=== PATIENT | female | born 1990 | race African-American/Black ===

== ENCOUNTER 2016-07-31 13:50 | Emergency (ER) | payer OTHER ==
[~2016-07-31] VITALS: Ht 160 cm; Wt 49.0 kg
[2016-07-31 14:28] VITALS: BP 103/69
--- NOTE | 2016-07-31 14:31 | NUR ---
TO LOBBY FOR AVAIL. BED
--- NOTE | 2016-07-31 21:38 | NUR ---
TO ER BED 4
--- NOTE | 2016-07-31 21:58 | NUR ---
MD CAME AT BEDSIDE TO EVALUATE PT.
[2016-07-31] MEDS ORDERED: IBUPROFEN 800 MG TAB PO ONE (22:15)
--- NOTE | 2016-07-31 22:38 | NUR ---
MOTRIN 800 MG PO GIVEN.
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
[2016-07-31 23:04] VITALS: BP 107/66
--- NOTE | 2016-07-31 23:05 | NUR ---
Patient discharged with v/s stable. Written and verbal after care instructions given and explained. Patient alert, oriented and verbalized understanding of instructions. Ambulatory with steady gait. All questions addressed prior to discharge. ID band removed. Patient advised to follow up with PMD. Rx of BACTRIM,MOTRIN,TYLENOL WITH CODEINE given. Patient educated on indication of medication including possible reaction and side effects. Opportunity to ask questions provided and answered.ENCOURAGED FLUID INTAKE AND PT AGREED WITH IT.INSTRUCTED ALSO TO COME BACK IN 2 DAYS.
== END 2016-07-31 23:04 | disposition home or self-care (01) ==
LOC: MED 13:50
DX: L03.317 Cellulitis of buttock (principal); J02.9 Acute pharyngitis, unspecified
CPT/HCPCS: 81002; 81025; 99283

== ENCOUNTER 2017-03-04 18:55 | Inpatient (IN) | payer MEDICAID, OTHER ==
[~2017-03-04] VITALS: Ht 162.6 cm; Wt 49.0 kg
[2017-03-04 18:57] VITALS: BP 125/93
--- NOTE | 2017-03-04 19:04 | NUR ---
Patient taken to bed 01 via wheelchair.
--- NOTE | 2017-03-04 19:15 | NUR ---
Patient being evaluated by Dr. Vazquez at bedside.
--- NOTE | 2017-03-04 19:15 | NUR ---
26/F presents to ED with complaints of severe lower abdominal cramping x1 week. Pt states she had an elective 8 days ago at [facility]. Pt reports having light vaginal bleeding after the procedure but on Thanksgiving the pain worsened and vaginal bleeding increased. Pt is crying, moaning, very restless in bed with severe pain. 01/16 pt describes as "contractions." AOX4, clear speech. Pt in a gown, VSS. Denies medical hx NKDA
[2017-03-04] MEDS ORDERED: HYDROmorphone 1 MG/ML AMP IVP ONE ×2 (19:20→19:35)
[2017-03-04] MEDS ORDERED: NACL 0.9% 1,000 ML IV ONE ×2 (19:20→19:35)
[2017-03-04] MEDS ORDERED: ONDANSETRON 4 MG/2 ML VIAL IVP ONE (19:20)
--- NOTE | 2017-03-04 19:27 | NUR ---
Ultrasound at bedside.
[2017-03-04 19:30] LABS: BASOPHILS # (AUTO) 0.1 K/uL (0.00-0.22); BASOPHILS % (AUTO) 0.9 % (0.0-2.0); EOSINOPHILS # (AUTO) 0.2 K/uL (0-0.4); HEMATOCRIT 36.9 % (36-48); HEMOGLOBIN 12.3 g/dL (12.0-16.0); LYMPHOCYTES # (AUTO) 2.7 K/uL (2.5-16.5); LYMPHOCYTES % (AUTO) 34.4 % (20.5-51.1); MEAN CORPUSCULAR HEMOGLOBIN 31 pg (27-31); MEAN CORPUSCULAR HGB CONC 33 g/dL (33-37); MEAN CORPUSCULAR VOLUME 93 fL (80-94); MONOCYTES # (AUTO) 0.4 K/uL (0.8-1.0); MONOCYTES % (AUTO) 5.6 % (1.7-9.3); NEUTROPHILS # (AUTO) 4.5 K/uL (1.8-7.7); NEUTROPHILS % (AUTO) 57.1 % (42.2-75.2); PLATELET COUNT (AUTO) 431 K/uL (140-450); RED BLOOD CELL COUNT(AUTO) 3.95 MIL/uL (4.20-5.40); RED CELL DISTRIBUTION WIDTH 11.9 % (11.6-13.7); WHITE BLOOD COUNT (AUTO) 7.9 K/uL (4.8-10.8)
[2017-03-04] MEDS ORDERED: ceFAZolin 1,000 MG VIAL IM ONE (19:35)
[2017-03-04 19:38] LABS: ANION GAP 12.5 (8-16); CARBON DIOXIDE 26.4 mmol/L (21-32); CREATININE 0.9 mg/dL (0.6-1.3); POTASSIUM 3.9 mmol/L (3.5-5.1)
[2017-03-04 19:44] LABS: ALBUMIN 3.8 g/dL (3.4-5.0); TOTAL BILIRUBIN 0.5 mg/dL (0.0-1.0)
--- NOTE | 2017-03-04 19:54 | NUR ---
Pt is resting, relaxing comfortably at this time. 5/10 pain. No longer restless, or crying. Pain improved. Comfort needs met.
[2017-03-04] MEDS ORDERED: ACETAMINOPHEN 325 MG TAB PO PRN (20:10)
[2017-03-04] MEDS ORDERED: HYDROcodone/APAP 7.5/325 MG 1 TAB PO PRN (20:10)
[2017-03-04] MEDS ORDERED: ONDANSETRON 4 MG/2 ML VIAL IVP PRN (20:10)
--- NOTE | 2017-03-04 20:20 | NUR ---
Pelvic exam performed by Dr. Vazquez with myself at bedside for entire examination. Patient tolerated procedure well. Patient assisted to position of comfort after examination.
--- NOTE | 2017-03-04 20:34 | NUR ---
Pt up to restroom to provide UA. Ambulatory with steady gait.
[2017-03-04 20:39] LABS: PROTHROMBIN TIME 11.2 secs (10.8-13.4)
--- NOTE | 2017-03-04 20:40 | NUR ---
Dr. Mora Resident at bedside evaluating patient.
--- NOTE | 2017-03-04 20:45 | NUR ---
X-Ray at bedside.
[2017-03-04 20:48] LABS: APPEARANCE,URINE CLOUDY (CLEAR); BILIRUBIN,URINE NEGATIVE (NEGATIVE); BLOOD, URINE 3+ (NEGATIVE); COLOR,URINE RED (YELLOW); LEUKOCYTE ESTERASE ,URINE TRACE (NEGATIVE); NITRITE, URINE NEGATIVE (NEGATIVE); PH,URINE 8.5 (5.0-9.0); UGLUCOSE NEGATIVE (NEGATIVE)
[2017-03-04 20:51] LABS: RBC,URINE TOO NUMEROUS TO COUN /HPF (0-5); WBC,URINE 0-5 (RARE) /HPF (0-5)
[2017-03-04 20:52] LABS: CHOL/HDL RATIO 2.6 (1-4.5); FREE T4 (FREE THYROXINE) 1.05 ng/dL (0.76-1.46); PHOSPHORUS 3.2 mg/dL (2.5-4.9); THYROID STIMULATING HORMONE 0.87 uIU/mL (0.34-3.74)
[2017-03-04 20:57] LABS: BARBITURATE, URINE NEG. ng/ml (NEG <=200); BENZODIAZEPINE, URINE NEG. ng/mL (NEG <=200); CANNABINOID, URINE POS. ng/mL (NEG <=50); COCAINE, URINE NEG. ng/mL (NEG <=300); OPIATE, URINE NEG. ng/mL (NEG <=2000); PHENCYCLIDINE SCREEN,URINE NEG. ng/mL (NEG <=25)
[2017-03-04] MEDS: DOCUSATE SODIUM 100 MG GELCAP PO SCH (21:00)
--- NOTE | 2017-03-04 21:11 | NUR ---
Patient will be admitted to care of Dr. Escobar. Admited to TELE. Will go to room 122-A. Belongings list completed. Report to Nicole MELGOZA.
--- NOTE | 2017-03-04 21:15 | NUR ---
PT NOT IN ROOM FOR EKG.
--- NOTE | 2017-03-04 21:20 | NUR ---
Pt transferred to Tele 122-A via gurpomona on cardiac monitoring.
[2017-03-04] MEDS ORDERED: HYDROmorphone 1 MG/ML AMP IVP PRN (21:25)
--- NOTE | 2017-03-04 21:30 | NUR ---
RECEIVED PT FROM ER VIA MARTINRMAGDA PT IS AAOX4 AMBULATORY IV ON LEFT AC INFUSING WELL ON LAWN SERVICE MANAGER SR SCAN ON PAD FROM VAGINAL BLEEDING PT IS ORIENTED TO THE FLOOR CALL LIGHT WITHIN REACH
[2017-03-04] MEDS: NACL 0.9% 1,000 ML IV SCH (21:48)
[2017-03-04] MEDS: DOXYCYCLINE 100 MG in DEXTROSE 5% 100 ML IV SCH (21:58)
[2017-03-04] MEDS ORDERED: DOXYCYCLINE 100 MG VIAL IV ONE (22:01)
[2017-03-05] VITALS (9 sets, daily range): BP systolic 99–115; BP diastolic 58–73
--- NOTE | 2017-03-05 | NUR ---
PT HAS BEEN MONITORING CLOSE N SCAN VAGINAL BLEEDING IV ON LEFT AC INFUSING WELL NOT FEVER ON TELEMETRY SR
[2017-03-05] MEDS: cefOXitin 2,000 MG in DEXTROSE 5% 100 ML IV SCH ×3 (00:31→12:34)
--- NOTE | 2017-03-05 04:00 | NUR ---
SPONGE BATH GIVEN LINEN CHANGED NOT DISTRESS NOTED , ON TELEMETRY SR
--- NOTE | 2017-03-05 06:44 | NUR ---
PT VERBALIZED TO HAVE SCAN BLOOD VAGINAL BLEEDING NOT FEVER NOT PAIN AT THIS TIME REMAIN RESTING ON BED
[2017-03-05 06:47] LABS: BASOPHILS # (AUTO) 0.2 K/uL (0.00-0.22); BASOPHILS % (AUTO) 2.1 % (0.0-2.0); EOSINOPHILS # (AUTO) 0.2 K/uL (0-0.4); EOSINOPHILS % (AUTO) 2.7 % (0.0-4.0); HEMATOCRIT 29.7 % (36-48); HEMOGLOBIN 9.8 g/dL (12.0-16.0); LYMPHOCYTES % (AUTO) 26.4 % (20.5-51.1); MEAN CORPUSCULAR HEMOGLOBIN 32 pg (27-31); MEAN CORPUSCULAR HGB CONC 33 g/dL (33-37); MEAN CORPUSCULAR VOLUME 95 fL (80-94); MONOCYTES # (AUTO) 0.9 K/uL (0.8-1.0); MONOCYTES % (AUTO) 11.4 % (1.7-9.3); NEUTROPHILS # (AUTO) 4.3 K/uL (1.8-7.7); NEUTROPHILS % (AUTO) 57.4 % (42.2-75.2); PLATELET COUNT (AUTO) 339 K/uL (140-450); RED BLOOD CELL COUNT(AUTO) 3.13 MIL/uL (4.20-5.40); RED CELL DISTRIBUTION WIDTH 11.9 % (11.6-13.7); WHITE BLOOD COUNT (AUTO) 7.6 K/uL (4.8-10.8)
--- NOTE | 2017-03-05 07:01 | NUR ---
DR Dina SERRANO IS HERE AND SEE THE PT
--- NOTE | 2017-03-05 07:10 | NUR ---
PT SIGN THE CONSENT FOR DILATATION AND CURETTAGE
--- NOTE | 2017-03-05 07:20 | NUR ---
PT TAKEN TO OR VIA TREMAINE
[2017-03-05 07:28] LABS: ANION GAP 9.7 (8-16); CARBON DIOXIDE 25.4 mmol/L (21-32); CREATININE 0.8 mg/dL (0.6-1.3); MAGNESIUM 1.8 mg/dL (1.8-2.4); PHOSPHORUS 3.2 mg/dL (2.5-4.9); POTASSIUM 4.1 mmol/L (3.5-5.1)
[2017-03-05] MEDS ORDERED: KETOROLAC 30 MG/ML VIAL IVP ONE (07:53)
[2017-03-05] MEDS ORDERED: PROPOFOL 200 MG/20 ML VIAL IV ONE (07:53)
[2017-03-05] MEDS ORDERED: ONDANSETRON 4 MG/2 ML VIAL IVP ONE (07:53)
[2017-03-05] MEDS ORDERED: SEVOFLURANE 250 ML BTL INH ONE (07:53)
[2017-03-05] MEDS ORDERED: DEXAMETHASONE 4 MG/ML VIAL IVP ONE (07:53)
[2017-03-05] MEDS ORDERED: fentaNYL 0.05 MG/ML VIAL ONE (08:04)
[2017-03-05] MEDS ORDERED: ONDANSETRON 4 MG/2 ML VIAL IVP PRN (08:10)
[2017-03-05] MEDS ORDERED: ACETAMINOPHEN/CODEINE 300/30MG 1 TAB PO PRN (08:10)
[2017-03-05] MEDS ORDERED: IBUPROFEN 800 MG TAB PO PRN (08:10)
[2017-03-05] MEDS ORDERED: MORPHINE SULFATE 4 MG/ML SYR IM/IVP PRN (08:10)
[2017-03-05] MEDS ORDERED: METHYLERGONOVINE 0.2 MG TAB PO SCH ×3 (08:15→09:06)
[2017-03-05] MEDS ORDERED: LACTOBACILLUS RHAMNOSUS GG 1 EACH CAP PO SCH (09:00)
[2017-03-05] MEDS: DOCUSATE SODIUM 100 MG GELCAP PO SCH (09:45)
[2017-03-05] MEDS: NACL 0.9% 1,000 ML IV SCH (09:46)
[2017-03-05] MEDS: DOXYCYCLINE 100 MG in DEXTROSE 5% 100 ML IV SCH (09:47)
--- NOTE | 2017-03-05 09:50 | NUR ---
ADMINISTERED MORNING MEDS. PT TOLERATED WELL. C/O OF HUANG. ADMINISTERED TYLENOL. HAD CLEAR LIQ DIET. TOLERATED WELL. WILL CONTINUE TO MONITOR PT.
--- NOTE | 2017-03-05 10:05 | NUR ---
PATIENT HAS BEEN SCREENED AND CATEGORIZED LOW NUTRITION RISK. PATIENT WILL BE SEEN WITHIN 7 DAYS OF ADMISSION. 03/11/[address]
--- NOTE | 2017-03-05 11:49 | NUR ---
PT RESTING COMFORTABLY. NO SIGNS OF DISTRESS. DENIES PAIN. WILL CONTINUE TO MONITOR PT.
--- NOTE | 2017-03-05 12:51 | NUR ---
PT READY TO GO HOME. SPOKE TO DR BANUELOS. SHE WILL GO SEE PT AND WILL START DC. WILL CONTINUE TO MONITOR PT.
[2017-03-05] MEDS ORDERED: DOXY100C9 PO (13:14)
[2017-03-05] MEDS ORDERED: IBUP-2213 PO (13:14)
[2017-03-05] MEDS ORDERED: ASCO1CAP75 PO (13:14)
--- NOTE | 2017-03-05 14:06 | NUR ---
DISCHARGE ORDER IN. NOT COMPLETE YET. WILL START D/C PROCESS.
--- NOTE | 2017-03-05 14:30 | NUR ---
GAVE PT DISCHARGE INSTRUCTION. ANSWERED ALL QUESTIONS. PT VERBALIZED UNDERSTANDING. REMOVED IV, CANNULA INTACT. NO BLEEDING NOTED. REMOVED ALL ID BANDS. PT WILL GET DRESSED AND WILL LET ME KNOW WHEN SHE IS READY TO GO.
--- NOTE | 2017-03-05 14:50 | NUR ---
STUDENT RN WALKED PT OUT THE LOBBY. PT HAS HER CAR. SHE WILL DRIVE HOME. PT IN STABLE CONDITION.
== END 2017-03-05 14:50 | disposition home or self-care (01) | DRG 544 ==
LOC: MED 18:55 → MTU 20:15
PROVIDERS: ADMIT Family Medicine; ATTEND Family Medicine
PROC: 10D17ZZ Extraction of Products of Conception, Retained, Via Natural or Artificial Opening (ICD-10-PCS; principal; 2017-03-05 07:30)
DX: O03.0 Genital tract and pelvic infection following incomplete spontaneous abortion (principal); N17.0 Acute kidney failure with tubular necrosis; O03.32 Renal failure following incomplete spontaneous abortion; O02.89 Other abnormal products of conception
CPT/HCPCS: 36415; 71010; 76856; 80048; 80053; 80305; 81001; 82140; 82150; 83036; 83690; 83735; 83880; 84100; 84439; 84443; 84484; 84702; 85025; 85610; 85730; 86886; 86900; 86901; 87081; 88305; 93005; 96361; 96365; 96375; 99285; J0690; J0694; J1100; J1170; J1885; J2405; J2704; J3010; J3490; J7030; J7060; J7120; Q0092

== ENCOUNTER 2019-08-29 08:54 | Emergency (ER) | payer MEDICAID, SELFPAY ==
[~2019-08-29] VITALS: Ht 160 cm; Wt 54.4 kg
[~2019-08-29 08:54] MED LIST: ASCO1CAP75 PO; DOXY100C9 PO; IBUP-2213 PO
--- NOTE | 2019-08-29 08:55 | NUR ---
Patient taken to bed 11.
[2019-08-29 09:00] VITALS: BP 135/75
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
--- NOTE | 2019-08-29 09:15 | NUR ---
[facility] PROTOCOL FOLLOWED PT TRANSFERRED FROM BED 11 TO 10 WITH MASK PT TAKEN TO ISOLATION COVID ROOM COVID SIGN / SIGN IN SHEET AT BEDSIDE RN FULL PPE
--- NOTE | 2019-08-29 09:33 | NUR ---
COVID SWAB DONE AND WALKED TO LAB
--- NOTE | 2019-08-29 09:52 | NUR ---
PHOTOVOLTAIC TECHNICIAN EN-ROUTE TO SPEAK WITH PATIENT PT RESTING IN BED SIDE RAIL X1
--- NOTE | 2019-08-29 10:05 | NUR ---
PREVENTIVE MEDICINE PHYSICIAN CALLED NO RESPONSE. PENDING SW TO SPEAK WITH PATIENT.
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
[2019-08-29 10:16] VITALS: BP 135/75
--- NOTE | 2019-08-29 10:16 | NUR ---
Patient discharged with v/s stable. Written and verbal after care instructions given and explained. Patient verbalized understanding. Ambulatory with steady gait. All questions addressed prior to discharge. Advised to follow up with PMD.
--- NOTE | 2019-08-29 17:15 | NUR ---
RESULTS FOR COVID RECEIVED, PT POSITIVE. DR. GANNON REQUESTING AED TRAINER TO ASSIST PATIENT IN HOUSING TO SELF ISOLATE. SPOKE WITH GIORGIO CURRICULUM DEVELOPMENT MANAGER AND SHE ADVISED ME THAT PATIENT NEEDED TO HAVE BOTH OF HER KIDS TESTED AND SHE NEEDS THEM TO BE BOTH TESTED AND TEST POSITIVE IN ORDER TO PLACE THEM. DECAL APPLIER AWARE ADAN AND HE WILL CALL TO NOTIFY PATIENT.
--- NOTE | 2019-08-29 17:23 | NUR ---
COPY OF RESULTS GIVEN TO STAKER SURVEYING ADAN.
--- NOTE | 2019-08-30 15:44 | NUR ---
SPOKE WITH PATIENT AND LET HER KNOW THAT JOE WILL BE CONTACTING HER TO PLACE HER IN HOUSING. I ADVISED JOE THAT WE CANNOT SEND HER PAPERWORK VIA EMAIL. I TOLD HER WE COULD SEND THE PATIENT WITH A COPY OF THE PAPERWORK IN AN ENVELOPE. I WILL ALSO BE FAXING COPY TO JOE'S FAX [phone]. I SPOKE TO KENNA AND LET HER KNOW THAT HER CHILDREN'S RESULTS ARE STILL PENDING AT THIS TIME BUT I WANTED TO GET HER INTO HOUSING BEFORE IT GETS DARK. I TOLD HER TO WAIT FOR A CALL FROM JOE AND ALSO LET HER KNOW THE ED WOULD CALL HER WITH HER CHILDREN'S RESULTS ONCE THEY ARE IN. PT VERBALIZED UNDERSTANDING.
== END 2019-08-29 10:16 | disposition home or self-care (01) ==
LOC: MED 08:54 → EEVIPCON 08:54 → MED 10:16
DX: U07.1 COVID-19 (principal); R43.0 Anosmia; R43.8 Other disturbances of smell and taste; J45.909 Unspecified asthma, uncomplicated; F17.210 Nicotine dependence, cigarettes, uncomplicated; Z79.899 Other long term (current) drug therapy
CPT/HCPCS: 99283; C9803; U0003; 36415

== ENCOUNTER 2020-07-28 14:55 | Emergency (ER) | payer MEDICAID, SELFPAY ==
[~2020-07-28] VITALS: Ht 160 cm; Wt 52.6 kg
[2020-07-28 15:10] VITALS: BP 110/70
--- NOTE | 2020-07-28 15:17 | NUR ---
Patient ambulated to restroom with a steady gait.
--- NOTE | 2020-07-28 15:19 | NUR ---
Patient ambulated to bed 5 with a steady gait.
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
[2020-07-28] MEDS ORDERED: IBUP-2213 PO (16:52)
[2020-07-28 17:00] VITALS: BP 110/70
== END 2020-07-28 17:00 | disposition home or self-care (01) ==
LOC: MED 14:55
DX: S46.911A Strain of unspecified muscle, fascia and tendon at shoulder and upper arm level, right arm, initial encounter (principal); S00.83XA Contusion of other part of head, initial encounter; J45.909 Unspecified asthma, uncomplicated; Z79.899 Other long term (current) drug therapy; Y04.2XXA Assault by strike against or bumped into by another person, initial encounter; Y93.89 Activity, other specified; Y92.89 Other specified places as the place of occurrence of the external cause; Y99.8 Other external cause status
CPT/HCPCS: 70486; 73030; 81025; 99284

== ENCOUNTER 2020-10-22 18:27 | Emergency (ER) | payer MEDICAID, SELFPAY ==
[~2020-10-22] VITALS: Ht 160 cm; Wt 54.0 kg
[2020-10-22 18:37] VITALS: BP 104/61
--- NOTE | 2020-10-22 18:46 | NUR ---
PT STATING SHE IS HERE FOR REFERRAL FROM DR VILLAFUERTE AND DR PATEL. STATING TO "CHECK THE SYSTEM TO WHY I'M HERE" PT TO AWAIT IN LOBBY.
--- NOTE | 2020-10-22 18:55 | NUR ---
SPOKE WITH IN REGARDS TO PATIENT AND HE STATED THAT PATIENT WAS TRESTED FOR UTI. PER DR. PATEL PATIENT WAS TOLD TO COME TO ER TO R/O PYELONEPHRITIS IF SYMPTOMS PERSISTED. PER DR. PATEL PATIENT IS TO STAY IN ER NOT L&D.
--- NOTE | 2020-10-22 19:23 | NUR ---
PT STATING SHE IS HERE FOR REFERRAL FROM DR VILLAFUERTE AND DR PATEL. STATING TO "CHECK THE SYSTEM TO WHY I'M HERE" BUT WAS ABLE TO REPORT THAT PATIENT STILL EXPERIENCING THE SAME UTI SYMPTOMS (FREQUENCY, BURNING, FOUL SMELL, AND CLOUDY URINE) EVEN WHEN ANTIBIOTICS HAVE BEEN FINISHED. PATIENT HAS NAUSEA, FATIGUE, BUT DENIES ANY PAIN. AAOX4. VSS.
[2020-10-22 20:02] LABS: BASOPHILS % (AUTO) 0.4 % (0.0-2.0); EOSINOPHILS # (AUTO) 0.2 K/uL (0-0.4); EOSINOPHILS % (AUTO) 2.7 % (0.0-4.0); HEMATOCRIT 35.1 % (36-48); HEMOGLOBIN 12.1 g/dL (12.0-16.0); LYMPHOCYTES # (AUTO) 2.2 K/uL (2.5-16.5); LYMPHOCYTES % (AUTO) 29.2 % (20.5-51.1); MEAN CORPUSCULAR HEMOGLOBIN 33 pg (27-31); MEAN CORPUSCULAR HGB CONC 35 g/dL (33-37); MEAN CORPUSCULAR VOLUME 96.1 fL (80-94); MONOCYTES # (AUTO) 0.7 K/uL (0.8-1.0); NEUTROPHILS # (AUTO) 4.4 K/uL (1.8-7.7); NEUTROPHILS % (AUTO) 58.7 % (42.2-75.2); PLATELET COUNT (AUTO) 258 K/uL (140-450); RED BLOOD CELL COUNT(AUTO) 3.65 MIL/uL (4.20-5.40); WHITE BLOOD COUNT (AUTO) 7.5 K/uL (4.8-10.8)
--- NOTE | 2020-10-22 20:03 | NUR ---
Patient appears to be resting comfortably in bed semi fowlers and talking on the phone. Respirations even and unlabored. AAOx4.
[2020-10-22 20:13] LABS: ALBUMIN 3.6 g/dL (3.4-5.0); ANION GAP 11.4 (8-16); CARBON DIOXIDE 27.2 mmol/L (21-32); CREATININE 0.7 mg/dL (0.6-1.3); POTASSIUM 3.6 mmol/L (3.5-5.1); TOTAL BILIRUBIN 0.2 mg/dL (0.0-1.0)
[2020-10-22] MEDS ORDERED: CEPH-588 PO (20:53)
[2020-10-22 20:54] LABS: APPEARANCE,URINE SL CLOUDY (CLEAR); BILIRUBIN,URINE NEGATIVE (NEGATIVE); BLOOD, URINE NEGATIVE (NEGATIVE); COLOR,URINE YELLOW (YELLOW); LEUKOCYTE ESTERASE ,URINE 1+ (NEGATIVE); NITRITE, URINE NEGATIVE (NEGATIVE); PH,URINE 5.5 (5.0-9.0); UGLUCOSE NEGATIVE (NEGATIVE)
[2020-10-22 21:02] VITALS: BP 103/67
[2020-10-22 21:02] LABS: RBC,URINE NONE SEEN /HPF (0-5)
[2020-10-22 21:03] LABS: WBC,URINE 80-100 /HPF (0-5)
--- NOTE | 2020-10-22 22:15 | NUR ---
Attempted to call patient about not being able to switch the pharmacy due to doctor but was unable to reach patient. did not leave a message.
== END 2020-10-22 21:02 | disposition home or self-care (01) ==
LOC: MED 18:27
DX: O23.41 Unspecified infection of urinary tract in pregnancy, first trimester (principal); O21.8 Other vomiting complicating pregnancy; J45.909 Unspecified asthma, uncomplicated; Z3A.09 9 weeks gestation of pregnancy
CPT/HCPCS: 36415; 80053; 81001; 81025; 85025; 87086; 99283

== ENCOUNTER 2021-05-28 08:45 | Inpatient (IN) | payer MEDICAID, SELFPAY ==
[~2021-05-28] VITALS: Ht 160 cm; Wt 64.9 kg
[~2021-05-28 08:45] MED LIST changes: +CEPH-588 PO; +DOXY-690 PO; -DOXY100C9 PO
[2021-05-28] MEDS ORDERED: PNV1TABL5 PO (09:12)
[2021-05-28] MEDS ORDERED: NALBUPHINE 10 MG/ML AMP IVP PRN (09:15)
[2021-05-28] MEDS ORDERED: PROMETHAZINE 25 MG/ML VIAL IVP PRN (09:15)
[2021-05-28] MEDS ORDERED: OXYTOCIN 10 UNITS/ML VIAL IM SCH (09:15)
[2021-05-28] MEDS ORDERED: CARBOPROST 250 MCG/ML AMP IM PRN (09:15)
[2021-05-28] MEDS ORDERED: METHYLERGONOVINE 0.2 MG/ML AMP IM PRN (09:15)
[2021-05-28] MEDS ORDERED: ROPIVACAINE 0.2%/NS PREMIX 200 ML EPI ONE (09:30)
[2021-05-28] MEDS ORDERED: MISOPROSTOL 25 MCG TAB ONE (10:33)
[2021-05-28 10:49] LABS: BASOPHILS % (AUTO) 0.4 % (0.0-2.0); EOSINOPHILS % (AUTO) 0.4 % (0.0-4.0); HEMATOCRIT 30.6 % (36-48); HEMOGLOBIN 10.6 g/dL (12.0-16.0); LYMPHOCYTES # (AUTO) 1.2 K/uL (2.5-16.5); LYMPHOCYTES % (AUTO) 16.5 % (20.5-51.1); MEAN CORPUSCULAR HEMOGLOBIN 32 pg (27-31); MEAN CORPUSCULAR HGB CONC 35 g/dL (33-37); MEAN CORPUSCULAR VOLUME 92.1 fL (80-94); MONOCYTES # (AUTO) 0.9 K/uL (0.8-1.0); MONOCYTES % (AUTO) 12.8 % (1.7-9.3); NEUTROPHILS # (AUTO) 5.1 K/uL (1.8-7.7); NEUTROPHILS % (AUTO) 69.9 % (42.2-75.2); PLATELET COUNT (AUTO) 223 K/uL (140-450); RED BLOOD CELL COUNT(AUTO) 3.32 MIL/uL (4.20-5.40); RED CELL DISTRIBUTION WIDTH 13.4 % (11.6-13.7); WHITE BLOOD COUNT (AUTO) 7.3 K/uL (4.8-10.8)
[2021-05-28 11:07] LABS: ALBUMIN 2.8 g/dL (3.4-5.0); ANION GAP 11.7 (8-16); CREATININE 0.5 mg/dL (0.6-1.3); POTASSIUM 3.7 mmol/L (3.5-5.1); TOTAL BILIRUBIN 0.4 mg/dL (0.0-1.0)
[2021-05-28] MEDS ORDERED: MISOPROSTOL 25 MCG TAB VG SCH (12:00)
[2021-05-28 12:23] LABS: APPEARANCE,URINE CLEAR (CLEAR); BILIRUBIN,URINE NEGATIVE (NEGATIVE); BLOOD, URINE NEGATIVE (NEGATIVE); COLOR,URINE YELLOW (YELLOW); LEUKOCYTE ESTERASE ,URINE 2+ (NEGATIVE); NITRITE, URINE NEGATIVE (NEGATIVE); UGLUCOSE NEGATIVE (NEGATIVE)
[2021-05-28 12:38] LABS: RBC,URINE 0-5 /HPF (0-5); WBC,URINE 0-5 /HPF (0-5)
[2021-05-28] MEDS: LACTATED RINGERS 1,000 ML IV SCH (15:56)
[2021-05-28] MEDS ORDERED: OXYTOCIN 20 UNITS/LR PREMIX 1,000 ML IV ONE (23:37)
[2021-05-28] MEDS ORDERED: OXYTOCIN 20 UNITS in LACTATED RINGERS 1,000 ML IV SCH (23:45)
[2021-05-29] MEDS: LACTATED RINGERS 1,000 ML IV SCH (00:11)
[2021-05-29] MEDS ORDERED: MORPHINE SULFATE 5 MG/ML VIAL IVP PRN (02:55)
[2021-05-29] MEDS ORDERED: MORPHINE SULFATE 10 MG/ML VIAL ONE (03:01)
[2021-05-29 03:05] VITALS: BP 116/69
[2021-05-29] MEDS ORDERED: ROPIVACAINE 0.2%/NS PREMIX 200 ML EPI ONE (03:18)
[2021-05-29] MEDS ORDERED: METHYLERGONOVINE 0.2 MG TAB PO PRN (06:15)
[2021-05-29] MEDS ORDERED: BENZOCAINE/MENTHOL 20%-0.5% 60 GM CAN TP PRN (06:15)
[2021-05-29] MEDS ORDERED: DOCUSATE SODIUM 100 MG GELCAP PO PRN (06:15)
[2021-05-29] MEDS ORDERED: bisacodyL 5 MG TABEC PO PRN (06:15)
[2021-05-29] MEDS ORDERED: IBUPROFEN 600 MG TAB PO PRN (06:15)
[2021-05-29] MEDS ORDERED: METHYLERGONOVINE 0.2 MG/ML AMP IM PRN (06:15)
[2021-05-29] MEDS ORDERED: SIMETHICONE 80 MG TAB.CHEW PO PRN (06:15)
[2021-05-29] MEDS ORDERED: OXYTOCIN 10 UNITS/ML VIAL IM PRN (06:15)
[2021-05-29] MEDS ORDERED: MEASLES, MUMPS, AND RUBELLA 1 VIAL SQVAC ONE (06:15)
[2021-05-29] MEDS ORDERED: AMMONIA AROMATIC 1 INHL INH ONE ×2 (09:58→10:23)
[2021-05-29] MEDS: IBUPROFEN 800 MG TAB PO PRN ×2 (10:19→17:30)
[2021-05-30 08:49] LABS: HEMATOCRIT 23.7 % (36-48); HEMOGLOBIN 8.3 g/dL (12.0-16.0)
--- NOTE | 2021-05-30 11:39 | NUR ---
PATIENT HAS BEEN SCREENED AND CATEGORIZED LOW NUTRITION RISK. PATIENT WILL BE SEEN WITHIN 7 DAYS OF ADMISSION. 05/30/21-06/04/[address]
== END 2021-05-30 12:50 | disposition home or self-care (01) | DRG 560 ==
LOC: MLD 08:45 → EEVIPCON 08:45 → MFCC 05-29 13:10
PROVIDERS: ADMIT Obstetrics & Gynecology; ATTEND Obstetrics & Gynecology
PROC: 10E0XZZ Delivery of Products of Conception, External Approach (ICD-10-PCS; principal; 2021-05-29)
PROC: 3E0P7VZ Introduction of Hormone into Female Reproductive, Via Natural or Artificial Opening (ICD-10-PCS; 2021-05-29)
PROC: 3E0R3BZ Introduction of Anesthetic Agent into Spinal Canal, Percutaneous Approach (ICD-10-PCS; 2021-05-29)
PROC: 00HU33Z Insertion of Infusion Device into Spinal Canal, Percutaneous Approach (ICD-10-PCS; 2021-05-29)
DX: O99.52 Diseases of the respiratory system complicating childbirth (principal); Z37.0 Single live birth; D62 Acute posthemorrhagic anemia; Z3A.39 39 weeks gestation of pregnancy; O90.81 Anemia of the puerperium; Z20.822 Contact with and (suspected) exposure to COVID-19; J45.909 Unspecified asthma, uncomplicated
CPT/HCPCS: 36415; 51702; 59200; 59409; 76815; 80053; 81001; 85018; 85025; 86592; 87086; J2210; J2270; J2300; J2550; J2590; J2795; J7120; Q0092